=== PATIENT | female | born 1950 | race Caucasian/White ===

== ENCOUNTER 2024-07-09 10:52 | Emergency (ER) | payer MEDICARE, OTHER, SELFPAY ==
[2024-07-09 11:03] VITALS: BP 165/100
--- NOTE | 2024-07-09 12:13 | ED.GENMED ---
History of Present Illness
General
Chief Complaint: Blood Pressure Problem
Source: patient
Time Seen by Provider: 07/09/24 11:46
History of Present Illness
History of Present Illness:
73 year old female with PMH of breast cancer presenting to the ER for evaluation of elevated blood pressure this morning. Patient states she was feeling some palpitations and anxiousness so decided to check her BP (patients checks her BP multiple
times per day) when she found it to be elevated. Patient sees a PCP through [facility] but also a provider who treats her with natural treatments. Patient does take metoprolol daily but also have an Rx for losartan and amlodipine but
notes she rarely takes these. Patient took one of her losartan and called her natural/supplement provider back and their office recommended patient to come to ED. Patient has no chest pain, SOB, current palpitations, headache, vision changes, focal
weakness/numbness, abdominal pain or any other concerns.
Past History
Past History
ED Past Medical History: Cancer and HTN
ED Past Surgical History: None
Social History
Tobacco: Non-smoker
Alcohol: None
Drug: None
Personal:
Living: with family
Review of Systems
Review of Systems
All Other Systems: ROS reviewed and negative except as documented in HPI and ROS
Phy Exam
Physical Exam
Physical Exam:
GENERAL: Alert , in no apparent distress
EYE: conjunctiva clear
NECK: Supple
ENT: o/p clr, mmm.
CARDIAC: Regular rate and rhythm
LUNGS: Clear breath sounds bilaterally, no acute respiratory distress, no wheezes/rales/rhonchi
ABDOMEN: soft, non tender, non distended
NEUROLOGICAL: Alert and oriented
SKIN: Warm and dry, skin intact.
MUSCULOSKELETAL: well perfused.
PSYCH: Normal and appropriate interaction.
Scores
Heart Failure Risk
Heart Failure Risk Score: Not Applicable
Heart Score for Chest Pain Patients
STEMI patient?: Not applicable
Withdrawal Assessment of Alcohol
Withdrawal Assessment Completed?: Not applicable
Course
Orders/Labs/Results
Orders:
Orders
07/09/24 11:08
ECG [Electrocardiogram (*1)] Urgent
Reason for Study: Palpitations
EKG- Treatment ONCE
Vital Signs
Initial and Last Documented VS:
Initial Vital Signs
Pulse Resp BP Pulse Ox
81 16 165/100 99
07/09/24 11:03 07/09/24 11:03 07/09/24 11:03 07/09/24 11:03
Last Documented Vital Signs
Pulse Resp BP Pulse Ox
74 20 157/99 99
07/09/24 12:20 07/09/24 12:20 07/09/24 12:20 07/09/24 12:20
MDM/Problems Addressed
Differential Diagnosis Includes:
Asymptomatic hypertension, anxiety, medication noncompliance, no symptoms to suggest endorgan dysfunction or hypertensive emergency
MDM/Problems Addressed:
73-year-old female presenting to the emergency department for evaluation of elevated blood pressure at home. Patient admits to feeling very anxious and checked blood pressure multiple times per day. As a prescription for 3 separate blood pressure
medications but only takes metoprolol routinely. I have no suspicion for hypertensive urgency/emergency. Had long conversation with patient about blood pressure management. At this time we decided it would be best for patient to only check her BP
twice a day, morning and evening and to keep a log of this over the next week. If her BP remains elevated during these checks to contact her PCP and have her PCP advise her on which of the two BP meds he wants her to take. Patient is agreeable with
this plan and aware of return precautions to the ER
Chronic conditions affecting care: HTN
Acute Exacerbation and/or Progression of Chronic Illness: HTN
*Pulse Oximetry
Patient hypoxic: no
*EKG
Interpreted by ED Provider?: Yes
Comparison EKG: no comparison EKG present
Heart Rate: 69
Rate: normal
Rhythm: sinus
Ischemia: no ischemia
*Critical Care Note
Total Time (30-74mins, 75-104mins- exclusive of procedures): Not Applicable
ED Attending Note
-
Portions of this chart may have been created with voice recognition software.� Occasional wrong word or��sound alike� substitutions may have occurred due to the inherent limitations of voice recognition software.
Discharge Plan
Departure
Patient Disposition: Home (Routine Discharge)
Date of Disposition: 07/09/24
Time of Disposition: 12:13
Patient with high blood pressure during this ER visit?: Yes
Discharge Problem:
Palpitations, Elevated blood pressure reading
Instructions: High Blood Pressure (DC)
Referrals:
Arjun Pace MD [Family Provider] -
Interventions
Interventions:
*Risk Screen - Suicide Last Done: 07/09/24 12:00
*General Assessment Last Done: 07/09/24 12:00
*Neglect/Abuse Screening Last Done: 07/09/24 12:00
*Nursing Disposition Last Done: 07/09/24 12:30
ED- Cardiac Assessment Last Done: 07/09/24 12:00
ED- Neurological Assessment Last Done: 07/09/24 12:00
ED- Pulmonary Assessment Last Done: 07/09/24 12:00
Discharge Date and Time
Discharge Date/Time: 07/09/24 12:31
Print Language: [id number]
[2024-07-09 12:20] VITALS: BP 157/99
== END 2024-07-09 12:31 | disposition home or self-care (01) ==
LOC: EMR 10:52
PROVIDERS: EMERGENCY PHYSICIAN Emergency Medicine; FAMILY PHYSICIAN Internal Medicine
DX: R00.2 Palpitations (principal); I10 Essential (primary) hypertension
CPT/HCPCS: 99283; 93005

== ENCOUNTER → 2025-09-08 14:31 | Outpatient (REF) | payer MEDICARE, OTHER, SELFPAY | LOC: HWRAD 14:31 | PROVIDERS: ATTENDING PHYSICIAN Physician Assistant Surgical; FAMILY PHYSICIAN Internal Medicine | DX: M19.012 Primary osteoarthritis, left shoulder (principal); M75.122 Complete rotator cuff tear or rupture of left shoulder, not specified as traumatic | CPT/HCPCS: 73200 ==